=== PATIENT | male | born 1960 | race Caucasian/White ===

== ENCOUNTER → 2023-10-28 07:07 | Outpatient (REF) | payer OTHER, SELFPAY | LOC: RAD 07:07 | PROVIDERS: ATTENDING PHYSICIAN Internal Medicine Gastroenterology; FAMILY PHYSICIAN Internal Medicine | DX: B18.2 Chronic viral hepatitis C (principal) | CPT/HCPCS: 76700 ==

== ENCOUNTER → 2024-01-16 11:42 | Outpatient (REF) | payer OTHER, SELFPAY | LOC: RAD 11:42 | PROVIDERS: ATTENDING PHYSICIAN Nurse Practitioner Family | DX: M25.561 Pain in right knee (principal) | CPT/HCPCS: 73564 ==

== ENCOUNTER → 2024-05-29 07:28 | Outpatient (REF) | payer OTHER, SELFPAY | LOC: RAD 07:28 | PROVIDERS: ATTENDING PHYSICIAN Internal Medicine Gastroenterology; FAMILY PHYSICIAN Internal Medicine | DX: B18.2 Chronic viral hepatitis C (principal) | CPT/HCPCS: 76700 ==

== ENCOUNTER → 2024-10-26 07:20 | Outpatient (REF) | payer OTHER, SELFPAY | LOC: RAD 07:20 | PROVIDERS: ATTENDING PHYSICIAN Internal Medicine Gastroenterology; FAMILY PHYSICIAN Internal Medicine | DX: B18.2 Chronic viral hepatitis C (principal) | CPT/HCPCS: 76700 ==

== ENCOUNTER → 2025-04-07 08:16 | Outpatient (REF) | payer OTHER, SELFPAY | LOC: HWRAD 08:16 | PROVIDERS: ATTENDING PHYSICIAN Internal Medicine Cardiovascular Disease; FAMILY PHYSICIAN Internal Medicine | DX: I77.810 Thoracic aortic ectasia (principal) | CPT/HCPCS: 71250 ==